=== PATIENT | female | born 1975 | race Caucasian/White ===

== ENCOUNTER → 2023-07-24 07:15 | Outpatient (REF) | payer OTHER, SELFPAY | LOC: DHSLP 07:15 | PROVIDERS: ATTENDING PHYSICIAN Physician Assistant | DX: G47.33 Obstructive sleep apnea (adult) (pediatric) (principal) | CPT/HCPCS: 95800 ==

== ENCOUNTER → 2023-08-13 13:50 | Outpatient (REF) | payer OTHER, SELFPAY | LOC: RCS 13:50 | PROVIDERS: ATTENDING PHYSICIAN Family Medicine | DX: R00.2 Palpitations (principal); R07.89 Other chest pain; I49.3 Ventricular premature depolarization | CPT/HCPCS: 93017 ==

== ENCOUNTER → 2023-08-19 09:47 | Outpatient (REF) | payer OTHER, SELFPAY | LOC: RCS 09:47 | PROVIDERS: ATTENDING PHYSICIAN Family Medicine | DX: R00.2 Palpitations (principal) | CPT/HCPCS: 93225; 93226 ==

== ENCOUNTER → 2023-10-15 13:56 | Outpatient (REF) | payer OTHER, SELFPAY | LOC: RAD 13:56 | PROVIDERS: ATTENDING PHYSICIAN Family Medicine | DX: J18.9 Pneumonia, unspecified organism (principal) | CPT/HCPCS: 71046 ==

== ENCOUNTER 2023-10-16 13:39 | Inpatient (IN) | payer OTHER, SELFPAY ==
[2023-10-16 09:35] VITALS: BMI 39.0
[2023-10-16 09:36] VITALS: BP 170/82
[2023-10-16 10:10] LABS: % Basophils 0.5 % (0-2); % Eosinophils 0.5 % (0-6); % Immature Granulocytes 0.5 % (0-0.5); % Lymphocytes 11.8 % (20.5-51.1); % Monocytes 8.4 % (1.7-9.3); % Neutrophils 78.3 % (42.2-75.2); Absolute Monocytes 0.7 10^3/uL (0.1-0.6); Absolute Neutrophils 6.8 10^3/uL (1.4-6.5); Hemoglobin 13.4 g/dL (12.0-16.0); Mean Corp Hgb Conc. 34.4 g/dL (33.0-37.0); Mean Corpuscular Hgb 29.1 pg (27.0-31.0); Mean Corpuscular Volume 84.6 fL (81.0-99.0); Mean Platelet Volume 9.8 fL (7.4-10.4); Nucleated Red Blood Cells % 0 %; Platelet Count 273 10^3/uL (130-400); Red Blood Cell Count 4.61 10^6/uL (4.20-5.40); Red Cell Dist. Width 13.4 % (11.5-14.5); White Blood Cell Count 8.6 10^3/uL (4.8-10.8)
[2023-10-16 10:18] LABS: INR 1.05; PT 13.7 Sec (11.4-14.6)
[2023-10-16 10:26] LABS: ALT (SGPT) 40 U/L (0-35); AST (SGOT) 65 U/L (14-36); Albumin 4.2 g/dl (3.5-5.0); Alkaline Phosphatase 73 U/L (38-126); Blood Urea Nitrogen 12 mg/dl (7-17); Calcium 9.2 mg/dl (8.4-10.2); Carbon Dioxide 26 mmol/L (22-30); Chloride 104 mmol/L (98-107); Estimated Creatinine Clearance > 125 ml/min; Glucose 112 mg/dl (70-99); Potassium 3.9 mmol/L (3.5-5.1); Sodium 139 mmol/L (135-145); Total Bilirubin 0.3 mg/dl (0.2-1.3); Total Protein 7.4 g/dl (6.3-8.2); eGFR > 60.00
[2023-10-16 10:35] LABS: Troponin I < 0.012 ng/ml
[2023-10-16] MEDS: DUONEB 3 ML INH (10:44)
[2023-10-16 11:00] LABS: HCG, Serum Qualitative Screen Negative
--- NOTE | 2023-10-16 11:28 | ED.GENMED ---
History of Present Illness
General
Chief Complaint: Musculo-Skeletal Complaint
Source: patient
Exam Limitations: none
Time Seen by Provider: 10/16/23 09:53
Nursing documentation reviewed up to this point in time: agreed with
Travel History
Have you had any contact with someone who has COVID-19?: No
Do you have any symptoms of coronavirus? Fever > 100 degrees, chills, cough, shortness of breath, sore throat, loss of taste or smell, muscle aches, or headache?: No
History of Present Illness
History of Present Illness:
The patient is a 47-year-old female with past medical history of asthma who reports cough and wheezing for several days. Patient reports that about 3 days ago, she developed sharp pain along her left rib cage area that has intensified and become
severe with coughing. Patient reports that her doctor initially put her on azithromycin but yesterday switched her to Augmentin. In addition, she was prescribed 40 mg of prednisone for 5 days. She started the prednisone yesterday. Patient had an
outpatient chest x-ray that was read as normal yesterday.
Past History
Past History
ED Past Medical History: Asthma
ED Past Surgical History: Other (Abdominoplasty, hernia repair)
Social History
Tobacco: Non-smoker
Alcohol: Other
Drug: None
Personal:
Living: with family
Employment: Other
Family History
Family History: Other
Review of Systems
Review of Systems
Allergies reviewed?: Yes
All Other Systems: ROS reviewed and negative except as documented in HPI and ROS
Constitutional: Reports no symptoms
EENT: Reports no symptoms
Respiratory: Reports cough and trouble breathing
Cardiac: Reports other (Left rib cage pain)
ABD/GI: Reports no symptoms
: Reports no symptoms
Musculoskeletal: Reports no symptoms
Skin: Reports no symptoms
Neurological: Reports no symptoms
Endocrine: Reports no symptoms
Hematologic/Lymphatic: Reports no symptoms
Psychiatric: Reports no symptoms
Phy Exam
Physical Exam
Physical Exam:
Physical Exam
General: Patient mildly tachypneic with speaking but appears nontoxic
Neck: supple. no meningeal signs. normal psoterior pharynx
Heart: s1/s2 regular rate and rhythm, no murmur. equal radial pulses.
Lungs: Diffuse wheezing throughout. Reproducible left chest wall pain when taking a deep breath
Abdomen: normal bowel sounds. not tender. no CVAT
Neuro: alert and oriented. no focal neurological deficits
Skin: no rash
Psychiatric: well kept. interactive and cooperative
Extremities: no edema. no calf tenderness. negative homans. good distal pulses
Course
Orders/Labs/Results
Orders:
Orders
10/16/23 09:43
EKG [Electrocardiogram (*1)] Urgent
Reason for Study: Other
Other Reason for Exam: rib pain
10/16/23 09:46
EKG- Treatment ONCE
10/16/23 09:55
Complete Blood Count/With Diff Urgent
Comprehensive Metabolic Panel Urgent
HCG, Serum Qualitative Screen Urgent
Comment: ADD ON
Prothrombin Time Urgent
Troponin I Urgent
10/16/23 10:28
Ipratropium/Albuterol Sulfate [Duoneb] 3 ml INH R NOW ONE
10/16/23 10:33
CT Chest Pe Study Urgent
Comment:
Reason For Exam: L chest pain
10/16/23 10:41
Add On- LAB Urgent
Tests Added?: serum HCG qualitative
10/16/23 11:30
Ketorolac [Toradol] 30 mg IV NOW STA
10/16/23 13:10
COVID-19 Antigen Stat
Source: Nasal Swab
Blood Culture Stat
MALICK Source: Blood/Venous
Specimen Description:
Influenza A+B Rapid Molecular Stat
MALICK Source: Nasal Swab
Specimen Description:
Abnormal Lab Results
10/16/23
09:55
Absolute Neuts (auto) 6.8 H 10^3/uL
(1.4-6.5)
Absolute Lymphs (auto) 1.0 L 10^3/uL
(1.2-3.4)
Absolute Monos (auto) 0.7 H 10^3/uL
(0.1-0.6)
Neutrophils % 78.3 H %
(42.2-75.2)
Lymphocytes % 11.8 L %
(20.5-51.1)
Glucose 112 H mg/dl
(70-99)
AST 65 H U/L
(14-36)
ALT 40 H U/L
(0-35)
10/16/23 09:55
10/16/23 09:55
Vital Signs
Initial and Last Documented VS:
Initial Vital Signs
Temp Pulse Resp BP Pulse Ox
99.4 F 82 20 170/82 97
10/16/23 09:36 10/16/23 09:36 10/16/23 09:36 10/16/23 09:36 10/16/23 09:36
Last Documented Vital Signs
Temp Pulse Resp BP Pulse Ox
99.4 F 75 20 170/82 92
10/16/23 09:36 10/16/23 12:45 10/16/23 12:45 10/16/23 09:36 10/16/23 12:45
*Radiology
Radiology exam reviewed: preliminary read by ED provider (Chest x-ray reviewed from yesterday which I am concerned shows a left lower lobe infiltrate) and radiology read reviewed
*Pulse Oximetry
Patient hypoxic: yes
Comment: 88% on room air at rest
*EKG
Interpreted by ED Provider?: Yes
Interpretation: normal
Comparison EKG: no comparison EKG present
Rate: normal
Rhythm: sinus
[place]: normal axis
QRS Pattern: normal QRS
Ischemia: no ischemia
*Advisory Software Engineer Interpretation
Interpretation: normal
Rhythm: sinus
*Critical Care Note
Total Time (30-74mins, 75-104mins- exclusive of procedures): 36 min
comment:
36 minutes of critical care given to the patient including reassessing her respiratory effort, reviewing her chest x-ray from yesterday, her CAT scan from today, reviewing her lab work, EKG and reassessing her lung sounds.
Data Reviewed
Review of Other/Old Records Reveals: Radiology Studies (Chest x-ray reviewed from yesterday. Possible left lower lobe infiltrate seen by me)
Source: patient
Patient Management
Discussion with other providers: Hospitalist
Escalation/DeEscalation of care consider admission/obs:
Given patient's acute respiratory distress involving wheezing and mild hypoxia, decision made to admit the patient to the hospital. Patient already taking oral Augmentin so I am not emergently starting her on IV antibiotics
ED Attending Note
-
Portions of this chart may have been created with voice recognition software.� Occasional wrong word or��sound alike� substitutions may have occurred due to the inherent limitations of voice recognition software.
Discharge Plan
Departure
Patient Disposition: Admit
Date of Disposition: 10/16/23
Time of Disposition: 12:39
Admit to: Med/Surg
Presentation/result/management discussed w/ accepting MD/DO: Hospitalist
Patient with high blood pressure during this ER visit?: Yes
Condition: Good
Covid-19: Not Applicable
Discharge Problem:
Bilateral pneumonia, Acute hypoxemic respiratory failure, Acute asthma exacerbation
Prescriptions:
No Action
albuterol sulfate 1 PUFF HFA aerosol inhaler
1 puff inhalation R Q6HPRN PRN (Reason: sob)
buspirone [BuSpar] 5 mg Tablet
2.5 mg PO BID
prednisone 20 mg Tablet
40 mg PO DAILY
Patient Comments:
patient pickle sorter on 10/15/23 for 5 days
omeprazole 40 mg Capsule,Delayed Release(Dr/Ec)
40 mg PO DAILY
tramadol 50 mg Tablet
50 mg PO BIDPRN PRN (Reason: MODERATE PAINS)
gabapentin 800 mg Tablet
800 mg PO BID
ibuprofen [Advil] 200 mg Tablet
400 mg PO Q6HPRN PRN (Reason: mild pain)
hydroxyzine HCl 25 mg Tablet
25 mg PO BIDPRN PRN (Reason: anxiety)
amoxicillin-pot clavulanate [Augmentin] 875-125 mg Tablet
1 tab PO BID
Trelegy Ellipta 100-62.5-25 mcg Blister With Device
1 inh INHALATION R DAILY
Referrals:
Joselito Cali MD [Family Provider] -
Interventions
Interventions:
*Risk Screen - Suicide Last Done: 10/16/23 09:36
*General Assessment Last Done: 10/16/23 09:36
*Neglect/Abuse Screening Last Done: 10/16/23 09:36
ED- Fall Risk Assessment Last Done: 10/16/23 09:56
*ED COVID-19 Vaccine History Last Done: 10/16/23 09:56
ED-Musculoskeletal Assessment Last Done: 10/16/23 09:56
Discharge Date and Time
Print Language: CAMEROONIAN
[2023-10-16] MEDS: TORADOL 30 MG IV (11:34)
--- NOTE | 2023-10-16 12:56 | HPS.HSE ---
Family Physician
<ALPA Minaya - Last Filed: 10/16/23 13:48>
-
Family Physician: Joselito Cali
Chief Complaint
<ALPA Minaya - Last Filed: 10/16/23 13:48>
-
Cough, wheezing, fever x 5 days
History of Present Illness
47-year-old female states she has had shortness of breath with productive yellow to green cough x 5 days. She did see her PCP 5 days ago(10/11) and was placed on Zpack. She then was transitioned yesterday 10/15/2023 to augmentin, prednisone. At that
time she was advised to use her albuterol inhaler 4 times daily. She reports she has had on and off fevers with Tmax middle the night 102 F. For which she took ibuprofen. She does state her 15-year-old daughter does have the same current symptoms
they were around younger children approximately 1 week ago that had runny noses and cough. She denies headache, sore throat, chills, chest pain, shortness of breath, abdominal pain, nausea, vomiting, diarrhea, urinary symptoms. She is currently in
a cam boot to her left foot secondary to ligament and bunionectomy and is due to see [facility] in 1 week
She has PMH migraine headaches, sciatica, asthma-mild intermittent, back pain/neuropathy, uterine polyps
Medical History
<ALPA Minaya - Last Filed: 10/16/23 13:48>
Past Medical History
Past Medical History: Reports Other
Additional Past Medical History:
asthma- mild
migraine headaches
sciatica
back pain/neuropathy
uterine polyps
anxiety
obesity
Past Surgical History: Reports Other
Additional Past Surgical History:
Hernia repair x 2 with abdominoplasty
Left total hip 2019
Left foot surgery ligament and bunionectomy 08/23/2023 at [facility]
Social History
Tobacco: Non-smoker
Alcohol: Occasional
Drug: None
Personal:
Living: With Family ( and 15-year-old daughter)
Employment: Employed
Family History
Family History: Other (Father CVA age 84, mother living history CVA, A-fib, DM 2)
Allergies / Home Medications
Allergies reflects when Allergies were last updated in [email or web address].
Home Medications with original date entered in [email or web address]
Allergy/Medication List:
Allergies
Allergy/AdvReac Type Severity Reaction Status Date / Time
No Known Allergies Allergy Verified 10/16/23 09:40
Home Medications
albuterol sulfate 90 mcg/actuation aerosol inhaler 1 puff inhalation R Q6HPRN PRN sob 10/06/17
amoxicillin 875 mg-potassium clavulanate 125 mg tablet 1 tab PO BID 10/16/23
buspirone 5 mg tablet 2.5 mg PO BID 10/16/23
fluticasone fur. 100 mcg-umeclid 62.5 mcg-vilant 25 mcg inhalat.powder (Trelegy Ellipta) 1 inh inhalation R DAILY 10/16/23
gabapentin 800 mg tablet 800 mg PO BID 10/16/23
hydroxyzine HCl 25 mg tablet 25 mg PO BIDPRN PRN anxiety 10/16/23
ibuprofen 200 mg tablet (Advil) 400 mg PO Q6HPRN PRN mild pain 10/16/23
omeprazole 40 mg capsule,delayed release 40 mg PO DAILY 10/16/23
prednisone 20 mg tablet 40 mg PO DAILY 10/16/23
tramadol 50 mg tablet 50 mg PO BIDPRN PRN MODERATE PAINS 10/16/23
Review of Systems
sydney;ALPA Minaya - Last Filed: 10/16/23 13:48>
-
History Source: Patient and Family ( at bedside)
Constitutional: Reports Fever and Chills
EENT: Denies Sore Throat or Runny Nose
Respiratory: Reports Cough (Productive) and Other (Wheezing); Denies Trouble Breathing
Cardiac: Denies Chest Pain, Diaphoresis, Palpitations or Syncope
Abdomen/GI: Denies Abdominal Pain, Nausea, Vomiting, Diarrhea, Constipated, Bloody Stools or Black Stools
: Denies Dysuria, Frequency, Flank Pain, Incontinence, Difficulty Voiding or Urgency
Musculoskeletal: Denies Joint Pain or Edema
Skin: Denies Itching or Rash
Neurological: Denies Dizzy, Headache or Weakness
Endocrine: Reports No Symptoms
Hematologic/Lymphatic: Reports No Symptoms
Psych: Reports Calm
Physical Exam
Dajalt;ALPA Minaya - Last Filed: 10/16/23 13:48>
Vital Signs
Vital Signs
Temp Pulse Resp BP Pulse Ox
99.4 F 75 20 170/82 92
10/16/23 09:36 10/16/23 12:45 10/16/23 12:45 10/16/23 09:36 10/16/23 12:45
Physical Exam
General: No Apparent Distress and Comfortable; No Pain, Fever or Chills
HEENT: NormoCephalic, Moist mucous membranes, PERRLA, [place] Conjunctivae and No Ptosis
Respiratory: Wheezes (Expiratory bilaterally with cough); No Rales or Rhonchi
Cardiac: S1/S2 and Regular Rhythm; No Murmur, Rub, Gallop or Peripheral Edema
GI: Soft, Non Tender, Non Distended and Normal Bowel Sounds
Genito-urinary: Deferred by me
Musculoskeletal: No Clubbing, No Cyanosis, Edema, Left Lower Extremity (Patient with cam boot in place secondary to ligament and bunion repair 08/23/2023) and No Edema; No Edema, Left Upper Extremity, Edema, Right Upper Extremity or Edema, Right
Lower Extremity
Skin: Warm and Dry; No Rash
Neuro: AO x 3, No Motor Deficits, Nonfocal/grossly intact, Cranial Nerves Intact and No Sensory Deficits; No Slurred Speech or Tremors
Psych: Calm
Laboratory Results
<ALPA Minaya - Last Filed: 10/16/23 13:48>
-
10/16/23 09:55
10/16/23 09:55
Laboratory Results
PT 13.7 Sec (11.4-14.6) 10/16/23 09:55
INR 1.05 10/16/23 09:55
Total Bilirubin 0.3 mg/dl (0.2-1.3) 10/16/23 09:55
AST 65 U/L (14-36) H 10/16/23 09:55
ALT 40 U/L (0-35) H 10/16/23 09:55
Alkaline Phosphatase 73 U/L (38-126) 10/16/23 09:55
Troponin I < 0.012 ng/ml 10/16/23 09:55
Data Reviewed
<ALPA Minaya - Last Filed: 10/16/23 13:48>
-
CT Scan: Report Reviewed by me
Lab Data: Labs Reviewed by me
Impression/Plan
<ALPA Minaya - Last Filed: 10/16/23 13:48>
-
Impression/plan:
Admit to MedSurg
#Acute hypoxic resp insuff 2/2 bilateral PNA
90%-93% RA %
completed zpack course
WBC 8.6, 99.4, HR 75, 170/82
-Check COVID, flu, blood cultures x 2
-IV Rocephin , doxycycline
-cont trelegy elipta, add xopenex
-legionella
-Sputum culture
-Incentive spirometry
-Consult pulmonary
-Tylenol as needed
-Follow CBC, CMP
CT PE study: No pulmonary embolism identified.
Findings most consistent with bilateral pneumonia most severe in the right lower lobe
Moderate cardiomegaly
Hepatic fatty infiltration with splenomegaly
EKG: NSR 72 bpm, QTc 413 MS no change from August 2016
#Asthma Hx-mild intermittent Hx no acute exacerbation
-cont Trelegy Ellipta or equivalent
#Transaminitis likely reactive/Hx hepatic fatty infiltration
AST 65, ALT 40, alk phos 73
Follow CMP
#Hx splenomegaly
#Status post ligament repair/bunionectomy left foot 08/23/2023
-Currently in cam boot is scheduled to see [facility] 1 week for removal
#Chronic back pain/neuropathy
-Continue gabapentin 800 mg bid, tramadol
#History of migraines- no current migraine
#Obesity due to excess calorie consumption�BMI 39 kg
Weight loss recommended, low-fat diet
#Anxiety
cont buspar
DVT prophylaxis
Subcu Lovenox
Full code
<Hamida Whitlock MD - Last Filed: 10/16/23 14:39>
-
Impression/plan:
Admit to MedSurg
#Acute hypoxic resp insuff 2/2 bilateral PNA
90%-93% RA %
completed zpack course
WBC 8.6, 99.4, HR 75, 170/82
-Check COVID, flu, blood cultures x 2
-IV Rocephin , doxycycline
-cont trelegy elipta, add xopenex
-legionella
-Sputum culture
-Incentive spirometry
-Consult pulmonary
-Tylenol as needed
-Follow CBC, CMP
CT PE study: No pulmonary embolism identified.
Findings most consistent with bilateral pneumonia most severe in the right lower lobe
Moderate cardiomegaly
Hepatic fatty infiltration with splenomegaly
EKG: NSR 72 bpm, QTc 413 MS no change from August 2016
#Asthma Hx-mild intermittent Hx no acute exacerbation
-cont Trelegy Ellipta or equivalent
#Transaminitis likely reactive/Hx hepatic fatty infiltration
AST 65, ALT 40, alk phos 73
Follow CMP
#Hx splenomegaly
#Status post ligament repair/bunionectomy left foot 08/23/2023
-Currently in cam boot is scheduled to see [facility] 1 week for removal
#Chronic back pain/neuropathy
-Continue gabapentin 800 mg bid, tramadol
#History of migraines- no current migraine
#Obesity due to excess calorie consumption�BMI 39 kg
Weight loss recommended, low-fat diet
#Anxiety
cont buspar
DVT prophylaxis
Subcu Lovenox
Full code
I saw and examined the patient.
The VICE PRESIDENT TAX or PA's note was reviewed and I agree with the note.
Comment:
Physical Exam
General: No Apparent Distress and Comfortable; No Pain, Fever or Chills
HEENT: Normocephalic, Moist mucous membranes, PERRLA, [place] Conjunctivae and No Ptosis
Respiratory: mild rhonchi, I did no hear significant Wheezes.
Cardiac: S1/S2 and Regular Rhythm;
GI: Soft, Non Tender, Non Distended and Normal Bowel Sounds
Genito-urinary:No CV tenderness
Musculoskeletal: No Clubbing, No Cyanosis, Edema, Left Lower Extremity (Patient with cam boot in place secondary to ligament and bunion repair 08/23/2023) and No Edema; No Edema, Left Upper Extremity, Edema, Right Upper Extremity or Edema, Right
Lower Extremity
Skin: Warm and Dry; No Rash
Neuro: AO x 3, No Motor Deficits, Nonfocal/grossly intact, Cranial Nerves Intact and No Sensory Deficits; No Slurred Speech or Tremors
Psych: Calm
#Acute hypoxic resp insuff 2/2 bilateral CAP
90%-93% RA %
completed zpack course
WBC 8.6, 99.4, HR 75, 170/82
- Negative COVID, flu
blood cultures x 2
-IV Rocephin , doxycycline
-cont Trelegy elipta, add Xopenex
-legionella
-Sputum culture if possible
-Incentive spirometry
-Consult pulmonary, appreciate help
-Tylenol as needed
-Follow CBC, CMP
CT PE study: No pulmonary embolism identified.
Findings most consistent with bilateral pneumonia most severe in the right lower lobe
Moderate cardiomegaly
Hepatic fatty infiltration with splenomegaly
EKG: NSR 72 bpm, QTc 413 MS no change from August 2016
#Asthma Hx-mild intermittent Hx no acute exacerbation
-cont Trelegy Ellipta or equivalent
#Transaminitis likely reactive/Hx hepatic fatty infiltration
AST 65, ALT 40, alk phos 73
Follow CMP
#Hx splenomegaly
#Status post ligament repair/bunionectomy left foot 08/23/2023
-Currently in cam boot is scheduled to see [facility] 1 week for removal
#Chronic back pain/neuropathy
-Continue gabapentin 800 mg bid, tramadol
#History of migraines- no current migraine
#Obesity due to excess calorie consumption�BMI 39 kg
Weight loss recommended, low-fat diet
#Anxiety
cont buspar
DVT prophylaxis
Subcu Lovenox
Full code
Total time spent to see the patient, examine the patient on the floor, review data and lab results, discuss treatment plan with patient, ER doctor and nursing staff around 75 minutes
[2023-10-16 14:06] LABS: COVID-19 Antigen Negative (Negative)
[2023-10-16] MEDS: XOPENEX 1.25 MG INHALANT SOLUTION INH ×2 (14:15→18:12)
[2023-10-16] MEDS: ROCEPHIN 1000 MG IV (14:21)
[2023-10-16] MEDS: VIBRAMYCIN 100 MG PO ×2 (14:23→20:23)
[2023-10-16 14:57] VITALS: BMI 37.9
[2023-10-16 15:06] VITALS: BP 152/88
--- NOTE | 2023-10-16 15:13 | PTCARENOTE ---
Received pt from ED in wheelchair. Able to walk into bed, appearing comfortable, slight ROJAS, occasional harsh productive cough w/ deep breaths. 95% on RA.
--- NOTE | 2023-10-16 15:14 | CON.PUL ---
Consultation
Consultation Request
Date/Time Consultation Requested: 10/16/23
Date/Time Consultation Performed: 10/16/23
Performing Provider: Kassandra
Reason for Consultation: SOB/asthma
Medical History
-
History of Present Illness:
Patient is a 47-year-old female with previous history of asthma, allergic rhinitis presenting to ER for acute onset shortness of breath, wheezing, cough with productive mucus for the past several days. She was treated by her outpatient primary
with course of azithromycin which did not help. She was then placed on Augmentin and prednisone. She was utilizing her albuterol up to 4 times daily without relief. She is currently taking Trelegy for her asthma. She feels she may have been
triggered by upper respiratory illness, fevers at home, sick contact with her daughter. CT chest showing possible RLL PNA.
She was diagnosed with asthma about 10 years ago by an outpatient jersey knitter who performed spirometry demonstrating obstruction. She does have skin testing that is positive for feathers. She has not had follow-up for several years in terms of her
asthma, last known spirometry was greater than 10 years ago. She does have seasonal allergies, does not take dewa-hjw-jnadpvg antihistamines regularly.
She generally has exacerbations 1 or 2 times a year due to acute bronchitis, requiring prednisone.
Past Medical History
Past Medical History: Other (see below)
Social History
Tobacco: Non-smoker
Alcohol: None
Drug: None
Family History
Family History: Reviewed & Not Pertinent
Allergies / Home Medications
Allergies
Allergy/AdvReac Type Severity Reaction Status Date / Time
No Known Allergies Allergy Verified 10/16/23 09:40
Home Medications
�Medication �Instructions �Recorded �Confirmed �Last Taken �Type
albuterol sulfate 90 mcg/actuation 1 puff inhalation R Q6HPRN PRN sob 10/06/17 10/16/23 04/13/21 18:00 History
aerosol inhaler
amoxicillin 875 mg-potassium 1 tab PO BID 10/16/23 10/16/23 10/16/23 History
clavulanate 125 mg tablet
buspirone 5 mg tablet 2.5 mg PO BID 10/16/23 10/16/23 10/16/23 History
fluticasone fur. 100 mcg-umeclid 1 inh inhalation R DAILY 10/16/23 10/16/23 10/16/23 History
62.5 mcg-vilant 25 mcg
inhalat.powder (Trelegy Ellipta)
gabapentin 800 mg tablet 800 mg PO BID 10/16/23 10/16/23 10/16/23 History
hydroxyzine HCl 25 mg tablet 25 mg PO BIDPRN PRN anxiety 10/16/23 10/16/23 Unknown History
ibuprofen 200 mg tablet (Advil) 400 mg PO Q6HPRN PRN mild pain 10/16/23 10/16/23 10/16/23 History
omeprazole 40 mg capsule,delayed 40 mg PO DAILY 10/16/23 10/16/23 10/16/23 History
release
prednisone 20 mg tablet 40 mg PO DAILY 10/16/23 10/16/23 10/16/23 History
tramadol 50 mg tablet 50 mg PO BIDPRN PRN MODERATE PAINS 10/16/23 10/16/23 10/16/23 History
Review of Systems
-
History Source: Patient
All other systems: Negative unless noted
Vitals / Labs / Diagnostic Testing
Vital Signs
Temp Pulse Resp BP Pulse Ox
97.9 F 75 20 152/88 95
10/16/23 15:06 10/16/23 15:06 10/16/23 15:06 10/16/23 15:06 10/16/23 15:11
Lab Data
10/16/23 09:55
10/16/23 09:55
Laboratory Results
10/16/23
09:55
PT 13.7
INR 1.05
Microbiology
10/16/23 13:34 Nasal Swab Influenza Types A & B (ANAHI) - Final
Negative for Influenza A & B, NAAT
Negative results must be combined with clinical observations
and patient history.
Nucleic Acid Amplification test (NAAT)performed on the
[employer] platform.
Diagnostic Testing:
Physical Exam
-
HEENT: Normocephalic, Anicteric and Moist Mucous Membranes
Cardiovascular: S1/S2 and Regular Rhythm
Respiratory: Clear (overall diminished) and Non-Labored Respirations
GI: Soft, Non Distended and Non Tender
Neurology: Awake, Alert, Oriented, AO x 3, No Motor Deficits and Other (L foot in boot)
Skin: Warm, Dry and Good Color
General: Comfortable and Other (NAD)
Assessment
-
Patient is a 47-year-old female with previous history of asthma, allergic rhinitis presenting to ER for acute onset shortness of breath, wheezing, cough with productive mucus for the past several days. She was treated by her outpatient primary
with course of azithromycin which did not help. She was then placed on Augmentin and prednisone. She was utilizing her albuterol up to 4 times daily without relief. She is currently taking Trelegy for her asthma. She feels she may have been
triggered by upper respiratory illness, fevers at home, sick contact with her daughter. We are consulted for eval.
Acute exacerbation of asthma
Shortness of breath, wheezing
Productive cough
URI/RLL PNA
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
DJD (degenerative joint disease), cervical
Migraine without aura, not intractable, without status migrainosus
Anxiety
Moderate persistent asthma without complication
Bipolar depression
History of torn ligament in ankle
Abdominoplasty and hernia repair (2014)
Left hip THR
Left s/p closed reduction of dislocated total hip prothesis 12/14/2021
Obesity BMI 37.9
Mild YESENIA, HST AHI 8.4
Plan
No oxygen was needed on admission, currently saturating >90% on RA
Prior history of lung disease is noted including: Asthma
She was diagnosed with asthma about 10 years ago by an outpatient jersey knitter who performed spirometry demonstrating obstruction.
She does have skin testing that is positive for feathers.
She does have seasonal allergies, does not take pojd-tuw-awevvyn antihistamines regularly.
She generally has exacerbations 1 or 2 times a year due to acute bronchitis, requiring prednisone.
Suspect patient has underlying AE asthma, will start IV steroids
We discussed asthma action plan
No PFT in past for review
CXR obtained indicating NAD, f/u CT chest showing possible RLL PNA
Appearance is not consolidated, but with fever would not be unreasonable to place on IV abx
She has failed outpatient PO abx
Other imaging reviewed
No prior ECHO for review
She did undergo recent stress test that was negative
Will need outpatient pulmonary evaluation in our office for PFTs and 6MWT
Reviewed with patient
HST recently showing mild YESENIA, this can be managed at our office as well
Weight loss measures recommended
Obesity may be contributing to respiratory symptoms
We will follow
Diagnostic Data
CT chest 10/16/23- IMPRESSION:
1. Limited by respiratory motion artifact. No pulmonary emboli are identified.
2. Findings as above most consistent with bilateral pneumonia, most severe in the right lower lobe.
3. Moderate cardiomegaly.
4. Hepatic fatty infiltration. Splenomegaly.
HST 07/24/23: AHI 8.4, O2 rashmi 68%
Stress test 08/13/23: neg, PACs/PVCs noted
[2023-10-16] MEDS: DECADRON 4 MG IV (16:10)
[2023-10-16] MEDS: LOVENOX 40 MG SC (16:11)
[2023-10-16] MEDS: ULTRAM 50 MG PO (18:02)
[2023-10-16] MEDS: SYMBICORT 80/4.5 MCG INHALER 2 PUFF INH (18:12)
--- NOTE | 2023-10-16 18:40 | W.PN.UPDATE ---
Update Note
Progress Note Update
Patient complaining of left lateral rib pain with coughing
-Tramadol not helping
-Will give Percocet 1 tab every 4 as needed left rib pain
[2023-10-16] MEDS: PERCOCET 5/325 1 TABLET PO ×2 (19:03→23:30)
[2023-10-16] MEDS: NEURONTIN 800 MG PO (20:23)
[2023-10-16] MEDS: BUSPAR 2.5 MG PO (20:23)
[2023-10-16] MEDS: MUCINEX 600 MG PO (20:23)
[2023-10-16 23:15] VITALS: BP 158/83
[2023-10-17] MEDS: DECADRON 4 MG IV ×2 (04:18→15:53)
[2023-10-17] MEDS: PERCOCET 5/325 1 TABLET PO ×5 (04:26→21:52)
[2023-10-17 07:40] VITALS: BP 160/95
[2023-10-17] MEDS: XOPENEX 1.25 MG INHALANT SOLUTION INH ×3 (08:04→21:01)
[2023-10-17] MEDS: SPIRIVA RESPIMAT 2.5 MCG 2 PUFF INH (08:05)
[2023-10-17] MEDS: SYMBICORT 80/4.5 MCG INHALER 2 PUFF INH ×2 (08:05→21:01)
[2023-10-17 08:06] LABS: % Basophils 0.5 % (0-2); % Lymphocytes 18.7 % (20.5-51.1); % Monocytes 7.4 % (1.7-9.3); % Neutrophils 72.4 % (42.2-75.2); Absolute Immature Granulocytes 0.1 10^3/uL (0-0.05); Absolute Lymphocytes 1.2 10^3/uL (1.2-3.4); Absolute Monocytes 0.5 10^3/uL (0.1-0.6); Absolute Neutrophils 4.6 10^3/uL (1.4-6.5); Hematocrit 38.2 % (37.0-47.0); Hemoglobin 12.8 g/dL (12.0-16.0); Mean Corp Hgb Conc. 33.5 g/dL (33.0-37.0); Mean Corpuscular Volume 86.4 fL (81.0-99.0); Mean Platelet Volume 10.1 fL (7.4-10.4); Nucleated Red Blood Cells % 0 %; Platelet Count 264 10^3/uL (130-400); Red Blood Cell Count 4.42 10^6/uL (4.20-5.40); Red Cell Dist. Width 13.2 % (11.5-14.5); White Blood Cell Count 6.3 10^3/uL (4.8-10.8)
[2023-10-17 08:26] LABS: Blood Urea Nitrogen 16 mg/dl (7-17); Calcium 9.2 mg/dl (8.4-10.2); Carbon Dioxide 26 mmol/L (22-30); Chloride 104 mmol/L (98-107); Estimated Creatinine Clearance > 125 ml/min; Glucose 109 mg/dl (70-99); Potassium 4.5 mmol/L (3.5-5.1); Sodium 137 mmol/L (135-145); eGFR > 60.00
[2023-10-17] MEDS: NEURONTIN 800 MG PO ×2 (08:27→20:07)
[2023-10-17] MEDS: PROTONIX 40 MG PO (08:27)
[2023-10-17] MEDS: MUCINEX 600 MG PO ×2 (08:27→20:07)
[2023-10-17] MEDS: VIBRAMYCIN 100 MG PO ×2 (08:27→20:07)
[2023-10-17] MEDS: BUSPAR 2.5 MG PO ×2 (08:27→20:08)
[2023-10-17] MEDS: ZOFRAN 4 MG IV (09:05)
--- NOTE | 2023-10-17 09:33 | W.PN.PUL3 ---
Today's Communication / Plan
-
Transition to PO steroids tomorrow
Continue home inhalers with albuterol PRN
Transition abx to PO
Outpatient pulmonary FU discussed again today
Discharge planning hopefully in next 24 hours if improving
Assessment
-
Patient is a 47-year-old female with previous history of asthma, allergic rhinitis presenting to ER for acute onset shortness of breath, wheezing, cough with productive mucus for the past several days. She was treated by her outpatient primary
with course of azithromycin which did not help. She was then placed on Augmentin and prednisone. She was utilizing her albuterol up to 4 times daily without relief. She is currently taking Trelegy for her asthma. She feels she may have been
triggered by upper respiratory illness, fevers at home, sick contact with her daughter. We are consulted for eval.
Acute exacerbation of asthma
Shortness of breath, wheezing
Productive cough
URI/RLL PNA
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
DJD (degenerative joint disease), cervical
Migraine without aura, not intractable, without status migrainosus
Anxiety
Moderate persistent asthma without complication
Bipolar depression
History of torn ligament in ankle
Abdominoplasty and hernia repair (2014)
Left hip THR
Left s/p closed reduction of dislocated total hip prothesis 12/14/2021
Obesity BMI 37.9
Mild YESENIA, HST AHI 8.4
Plan
No oxygen was needed on admission, currently saturating >90% on RA
Prior history of lung disease is noted including: Asthma
She was diagnosed with asthma about 10 years ago by an outpatient digital business analyst who performed spirometry demonstrating obstruction.
She does have skin testing that is positive for feathers.
She does have seasonal allergies, does not take sesk-pir-cwzkoom antihistamines regularly.
She generally has exacerbations 1 or 2 times a year due to acute bronchitis, requiring prednisone.
Suspect patient has underlying AE asthma, IV steroids
Transition to PO course tomorrow
We discussed asthma action plan
No PFT in past for review
CXR obtained indicating NAD, f/u CT chest showing possible RLL PNA
Appearance is not consolidated, but with fever would not be unreasonable to place on IV abx
She has failed outpatient PO abx
Other imaging reviewed
No prior ECHO for review
She did undergo recent stress test that was negative
Will need outpatient pulmonary evaluation in our office for PFTs and 6MWT
Reviewed with patient
HST recently showing mild YESENIA, this can be managed at our office as well
Weight loss measures recommended
Obesity may be contributing to respiratory symptoms
Discharge planning per team if better in next 24 hours
Diagnostic Data
CT chest 10/16/23- IMPRESSION:
1. Limited by respiratory motion artifact. No pulmonary emboli are identified.
2. Findings as above most consistent with bilateral pneumonia, most severe in the right lower lobe.
3. Moderate cardiomegaly.
4. Hepatic fatty infiltration. Splenomegaly.
HST 07/24/23: AHI 8.4, O2 rashmi 68%
Stress test 08/13/23: neg, PACs/PVCs noted
Subjective Data
-
Date of Service:
Date of Service: October 17, 2023
Chief Complaint: Pulmonary Follow Up
Subjective:
better today, still wheezing mildly
cough has started
she does feel less SOB
Objective Data
Data Reviewed
Vital Signs / I&O / Oxygen:
Vital Signs
Temp Pulse Resp BP Pulse Ox
97.8 F 76 18 160/95 94
10/17/23 07:40 10/17/23 08:07 10/17/23 08:07 10/17/23 07:40 10/17/23 08:58
Intake and Output
10/16/23 10/17/23 10/18/23
06:59 06:59 06:59
Intake Total 1440 / 1440
Balance 1440 / 1440
SaO2 94
Physical Exam
General: Comfortable and Other (NAD)
HEENT: Normocephalic, Anicteric and Moist Mucous Membranes
Cardiovascular: S1-S2 and Regular Rhythm
Respiratory: Wheeze (mild), Non-Labored Respirations and Other (better air movement)
GI: Soft, Non Distended and Non Tender
Neurology: Awake, Alert, Oriented, AO x 3 and No Motor Deficits
Skin: Warm, Dry and Good Color
Labs/Micro/Reports
Lab Data
10/17/23 06:59
10/17/23 06:59
Laboratory Results
10/16/23
09:55
PT 13.7
INR 1.05
Microbiology
10/16/23 17:32 Sputum Respiratory Culture - Final
10/16/23 17:32 Sputum Gram Stain - Preliminary
10/16/23 13:34 Nasal Swab Influenza Types A & B (ANAHI) - Final
Negative for Influenza A & B, NAAT
Negative results must be combined with clinical observations
and patient history.
Nucleic Acid Amplification test (NAAT)performed on the
[employer] platform.
--- NOTE | 2023-10-17 09:38 | W.PN.HOSP.TC ---
Today's Communication/Plan
-
likely dc in am
Assessment / Plan
Assessment / Plan
Physical Exam
General: No Apparent Distress and Comfortable; No Pain, Fever or Chills
HEENT: Normocephalic, Moist mucous membranes, PERRLA, [place] Conjunctivae and No Ptosis
Respiratory: mild rhonchi, I did no hear significant Wheezes.
Cardiac: S1/S2 and Regular Rhythm;
GI: Soft, Non Tender, Non Distended and Normal Bowel Sounds
Genito-urinary:No CV tenderness
Musculoskeletal: No Clubbing, No Cyanosis, Edema, Left Lower Extremity (Patient with cam boot in place secondary to ligament and bunion repair 08/23/2023) and No Edema; No Edema, Left Upper Extremity, Edema, Right Upper Extremity or Edema, Right
Lower Extremity
Skin: Warm and Dry; No Rash
Neuro: AO x 3, No Motor Deficits, Nonfocal/grossly intact, Cranial Nerves Intact and No Sensory Deficits; No Slurred Speech or Tremors
Psych: Calm
#Acute hypoxic resp insuff 2/2 bilateral CAP
She is doing better now
No need for more nasal O@
c/w Abx
Add Tessalon for cough
# Left lower rib pain, likely from coughing
No trauma history
Will do PRN pain medicine
and add heating pad
Prophylactic laxative due to use of opioid , Dulcolax
#Acute exacerbation of asthma from infection / hx of Moderate persistent asthma without complication
-cont Trelegy Ellipta or equivalent
Trial of steroid therapy
#Transaminitis likely reactive/Hx hepatic fatty infiltration
AST 65, ALT 40, alk phos 73
No abd pain
Good appetite
#Hx splenomegaly
#Status post ligament repair/bunionectomy left foot 08/23/2023
-Currently in cam boot is scheduled to see [facility] 1 week for removal
#Chronic back pain/neuropathy
-Continue gabapentin 800 mg bid, tramadol
#History of migraines- no current migraine
#Obesity due to excess calorie consumption�BMI 39 kg
Weight loss recommended, low-fat diet
#Anxiety
cont buspar
DVT prophylaxis
Subcu Lovenox
Full code
Total time spent to see the patient, examine the patient on the floor, review data and lab results, discuss treatment plan with patient and nursing staff around 55 minutes
Anticipated Discharge: Within 24 hours
Subjective/Interval History
-
Date of Service: October 17, 2023
Feels better, still cough
Left lower rib pain
Objective Data
-
Labs:
Laboratory Results
10/17/23
06:59
WBC 6.3
Hgb 12.8
Hct 38.2
Plt Count 264
Sodium 137
Potassium 4.5
Chloride 104
Carbon Dioxide 26
BUN 16
Creatinine 0.5 L
Glucose 109 H
Calcium 9.2
Vital Signs:
Vital Signs
Temp Pulse Resp BP Pulse Ox
97.8 F 76 18 160/95 94
10/17/23 07:40 10/17/23 08:07 10/17/23 08:07 10/17/23 07:40 10/17/23 08:58
I&O
10/16/23 10/17/23 10/18/23
06:59 06:59 06:59
Intake Total 1440 / 1440
Balance 1440 / 1440
[2023-10-17] MEDS: TESSALON PERLES 200 MG PO ×2 (10:58→17:48)
[2023-10-17] MEDS: NORVASC 5 MG PO (10:59)
[2023-10-17 11:10] VITALS: BP 130/79
[2023-10-17] MEDS: ROCEPHIN 1000 MG IV (13:42)
[2023-10-17] MEDS: STERILE WATER FOR INJECTION 10 ML IV (13:42)
--- NOTE | 2023-10-17 15:26 | CM ---
bingo manager reviewed patient's chart and met with patient and franca lives with her spouse and children in a multilevel home, patient is independent with adl's and ambulation, no dme, patient drives. Patient has a prescription plan and uses [facility].
PCP: Dr. Cali
Plan; Home with spouse when stable.
[2023-10-17 15:35] VITALS: BP 156/96
[2023-10-17] MEDS: LOVENOX 40 MG SC (17:28)
[2023-10-17] MEDS: DULCOLAX 10 MG PO (21:50)
[2023-10-17 22:45] VITALS: BP 146/79
[2023-10-17 23:00] VITALS: BP 146/79
[2023-10-18] MEDS: PERCOCET 5/325 1 TABLET PO ×2 (03:53→10:01)
[2023-10-18] MEDS: TESSALON PERLES 200 MG PO ×2 (03:53→10:01)
[2023-10-18 06:29] LABS: % Basophils 0.3 % (0-2); % Immature Granulocytes 1.3 % (0-0.5); % Lymphocytes 36.1 % (20.5-51.1); % Monocytes 8.2 % (1.7-9.3); % Neutrophils 54.1 % (42.2-75.2); Absolute Immature Granulocytes 0.1 10^3/uL (0-0.05); Absolute Lymphocytes 2.2 10^3/uL (1.2-3.4); Absolute Monocytes 0.5 10^3/uL (0.1-0.6); Absolute Neutrophils 3.3 10^3/uL (1.4-6.5); Hematocrit 36.8 % (37.0-47.0); Hemoglobin 12.7 g/dL (12.0-16.0); Mean Corp Hgb Conc. 34.5 g/dL (33.0-37.0); Mean Corpuscular Hgb 29.1 pg (27.0-31.0); Mean Corpuscular Volume 84.4 fL (81.0-99.0); Mean Platelet Volume 9.7 fL (7.4-10.4); Nucleated Red Blood Cells % 0 %; Platelet Count 279 10^3/uL (130-400); Red Blood Cell Count 4.36 10^6/uL (4.20-5.40); Red Cell Dist. Width 13.4 % (11.5-14.5); White Blood Cell Count 6.1 10^3/uL (4.8-10.8)
[2023-10-18 06:59] LABS: Blood Urea Nitrogen 16 mg/dl (7-17); Calcium 9.2 mg/dl (8.4-10.2); Carbon Dioxide 27 mmol/L (22-30); Chloride 103 mmol/L (98-107); Estimated Creatinine Clearance > 125 ml/min; Glucose 93 mg/dl (70-99); Potassium 4.1 mmol/L (3.5-5.1); Sodium 139 mmol/L (135-145); eGFR > 60.00
[2023-10-18 07:00] VITALS: BP 120/72
[2023-10-18] MEDS: XOPENEX 1.25 MG INHALANT SOLUTION INH ×2 (08:14→13:59)
[2023-10-18] MEDS: SYMBICORT 80/4.5 MCG INHALER 2 PUFF INH (08:14)
[2023-10-18] MEDS: SPIRIVA RESPIMAT 2.5 MCG 2 PUFF INH (08:22)
--- NOTE | 2023-10-18 09:12 | W.PN.PUL3 ---
Today's Communication / Plan
-
Transitioned to PO prednisone, taper at discharge
Encouraged continued ambulation/PT
Resume home inhalers
We discussed OP pulm FU for PFTs
Discharge planning per team, she was agreeable to go home
Assessment
-
Patient is a 47-year-old female with previous history of asthma, allergic rhinitis presenting to ER for acute onset shortness of breath, wheezing, cough with productive mucus for the past several days. She was treated by her outpatient primary
with course of azithromycin which did not help. She was then placed on Augmentin and prednisone. She was utilizing her albuterol up to 4 times daily without relief. She is currently taking Trelegy for her asthma. She feels she may have been
triggered by upper respiratory illness, fevers at home, sick contact with her daughter. We are consulted for eval.
Acute exacerbation of asthma
Shortness of breath, wheezing
Productive cough
URI/RLL PNA
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
DJD (degenerative joint disease), cervical
Migraine without aura, not intractable, without status migrainosus
Anxiety
Moderate persistent asthma without complication
Bipolar depression
History of torn ligament in ankle
Abdominoplasty and hernia repair (2014)
Left hip THR
Left s/p closed reduction of dislocated total hip prothesis 12/14/2021
Obesity BMI 37.9
Mild YESENIA, HST AHI 8.4
Plan
No oxygen was needed on admission, currently saturating >90% on RA
Prior history of lung disease is noted including: Asthma
She was diagnosed with asthma about 10 years ago by an outpatient teachers assistant who performed spirometry demonstrating obstruction.
She does have skin testing that is positive for feathers.
She does have seasonal allergies, does not take vrtf-iue-mnbtwpw antihistamines regularly.
She generally has exacerbations 1 or 2 times a year due to acute bronchitis, requiring prednisone.
Suspect patient has underlying AE asthma, IV steroids
Transitioned to PO course, taper at discharge
We discussed asthma action plan
No PFT in past for review
CXR obtained indicating NAD, f/u CT chest showing possible RLL PNA
Appearance is not consolidated, but with fever would not be unreasonable to place on IV abx
She has failed outpatient PO abx
Other imaging reviewed
No prior ECHO for review
She did undergo recent stress test that was negative
Will need outpatient pulmonary evaluation in our office for PFTs and 6MWT
Reviewed with patient
HST recently showing mild YESENIA, this can be managed at our office as well
Weight loss measures recommended
Obesity may be contributing to respiratory symptoms
Discharge planning per team
Diagnostic Data
CT chest 10/16/23- IMPRESSION:
1. Limited by respiratory motion artifact. No pulmonary emboli are identified.
2. Findings as above most consistent with bilateral pneumonia, most severe in the right lower lobe.
3. Moderate cardiomegaly.
4. Hepatic fatty infiltration. Splenomegaly.
HST 07/24/23: AHI 8.4, O2 rashmi 68%
Stress test 08/13/23: neg, PACs/PVCs noted
Subjective Data
-
Date of Service:
Date of Service: October 18, 2023
Chief Complaint: Pulmonary Follow Up
Subjective:
doing well today, stable on room air
no new complaints
coughing ongoing
Objective Data
Data Reviewed
Vital Signs / I&O / Oxygen:
Vital Signs
Temp Pulse Resp BP Pulse Ox
98.7 F 69 14 120/72 97
10/18/23 07:00 10/18/23 08:25 10/18/23 08:25 10/18/23 07:00 10/18/23 08:25
Intake and Output
10/17/23 10/18/23 10/19/23
06:59 06:59 06:59
Intake Total 1440 / 1440 960 / 960
Balance 1440 / 1440 960 / 960
SaO2 97
Physical Exam
General: Comfortable and Other (NAD)
HEENT: Normocephalic, Anicteric and Moist Mucous Membranes
Cardiovascular: S1-S2 and Regular Rhythm
Respiratory: Clear and Non-Labored Respirations
GI: Soft, Non Distended and Non Tender
Neurology: Awake, Alert, Oriented, AO x 3 and No Motor Deficits
Skin: Warm, Dry and Good Color
Labs/Micro/Reports
Lab Data
10/18/23 06:21
10/18/23 06:21
Microbiology
10/16/23 13:34 Blood/Venous Blood Culture - Preliminary
No Growth in 24 hours- Final report to follow
10/16/23 17:32 Sputum Respiratory Culture - Final
10/16/23 17:32 Sputum Gram Stain - Preliminary
10/16/23 13:34 Nasal Swab Influenza Types A & B (ANAHI) - Final
Negative for Influenza A & B, NAAT
Negative results must be combined with clinical observations
and patient history.
Nucleic Acid Amplification test (NAAT)performed on the
[employer] platform.
[2023-10-18] MEDS: NEURONTIN 800 MG PO (09:39)
[2023-10-18] MEDS: PROTONIX 40 MG PO (09:39)
[2023-10-18] MEDS: DELTASONE 50 MG PO (09:39)
[2023-10-18] MEDS: MUCINEX 600 MG PO (09:39)
[2023-10-18] MEDS: NORVASC 5 MG PO (09:39)
[2023-10-18] MEDS: STERILE WATER FOR INJECTION 10 ML IV (09:40)
[2023-10-18] MEDS: VIBRAMYCIN 100 MG PO (09:40)
[2023-10-18] MEDS: ROCEPHIN 1000 MG IV (09:40)
[2023-10-18] MEDS: BUSPAR 2.5 MG PO (09:40)
[2023-10-18] MEDS: STERILE WATER FOR INJECTION IV (09:43)
[2023-10-18] MEDS: ZOFRAN 4 MG IV (10:00)
--- NOTE | 2023-10-18 12:10 | W.DCSUMMARY ---
Discharge Summary
Discharge Data
Date of Admission: 10/16/23
Date of Discharge: 10/18/23
-
Pending Results: No
Hospital Course
47 years old female with previous history of asthma, allergic rhinitis presented to the emergency department with worsening shortness of breath, wheezing, cough and productive whitish/yellowish mucus in the last few days. Patient was given
treatment with course of Zithromax but did not help. Patient was placed on Augmentin and prednisone. She was using her albuterol treatment at home with no improvement. She was also taking Trelegy for her asthma. She did not have fevers. Scan
of the chest showed bilateral pneumonia and no pulmonary embolism. Patient was diagnosed with community-acquired pneumonia with acute exacerbation of asthma. Patient was evaluated by pulmonary doctor. She was given intravenous antibiotic, steroid
treatment and nebulizer treatment. Patient started to improve. She did not need oxygen therapy. She did not have fevers. Blood culture did not show any any growth. She had negative COVID and influenza test. Patient did not have leukocytosis.
Patient was noted to have elevated blood pressure consistently with systolic blood pressure between 170-146. Patient was started on new medicine called amlodipine, 5 mg. She tolerated medication well. Patient was advised to follow-up with her
primary care doctor to monitor blood pressure at home. Pulmonary doctor recommended outpatient follow-up. Patient complained of left lower rib pain from coughing. She was given pain medicine and heating pad. She had mild elevation in liver
enzymes and a scan showed splenomegaly with hepatic fatty infiltration. Patient was counseled to follow healthy lifestyle including weight loss and low-fat diet. Patient was following with teacher of the emotionally disturbed. Patient remained hemodynamically stable and
was discharged in a stable condition.
Physical Exam
General: No Apparent Distress and Comfortable; No Pain, Fever or Chills
HEENT: Normocephalic, Moist mucous membranes, PERRLA, [place] Conjunctivae and No Ptosis
Respiratory: Mild rhonchi with no significant wheezes
Cardiac: S1/S2 and Regular Rhythm;
GI: Soft, Non Tender, Non Distended and Normal Bowel Sounds
Genito-urinary:No CV tenderness
Musculoskeletal: No Clubbing, No Cyanosis, Edema, Left Lower Extremity (Patient with cam boot in place secondary to ligament and bunion repair 08/23/2023) and No Edema; No Edema, Left Upper Extremity, Edema, Right Upper Extremity or Edema, Right
Lower Extremity
Skin: Warm and Dry; No Rash
Neuro: AO x 3, No Motor Deficits, Nonfocal/grossly intact, No Slurred Speech or Tremors
Psych: Calm
Total discharge time spent to see the patient, examine the patient on the floor, review data and lab results, discuss discharge plan with patient pulmonary doctor and nursing staff around 65 minutes
Discharge Plan
-
Patient Disposition: Home (Routine Discharge)
Discharge Diagnosis/Procedures: Community-acquired pneumonia
Acute asthma exacerbation
Newly diagnosis primary hypertension: You are started on new medicine called amlodipine which is a calcium channel loyd, potential side effects include hypotension, mild ankle edema(unusual in sometimes more common in women). Monitor your blood
pressure at home. Optimal blood pressure less than 140/90. Avoid excess salt intake.
Fatty liver
You are seen by pulmonary doctor. You were given antibiotic. Blood culture did not show any growth. You had negative influenza and COVID test. He did not have fever or elevation in white blood cell count.
Follow-up with pulmonary doctor.
Diet: Regular and Low Fat
Referrals:
Joselito Cali MD [Family Provider] - in one to two weeks
Fiorella Cannon DO [Active] - (3-4 weeks, PFTs)
Prescriptions:
New
doxycycline hyclate 100 mg Capsule
100 mg PO Q12 Qty: 6 0RF
amlodipine 5 mg Tablet
5 mg PO DAILY Qty: 30 0RF
benzonatate 100 mg Capsule
200 mg PO TIDPRN PRN (Reason: cough) Qty: 20 0RF
cefdinir 300 mg capsule
300 mg PO BID Qty: 6 0RF
prednisone 10 mg tablet
10 mg PO DAILY Qty: 12 0RF
Rx Instructions:
30 mg daily for 2 days then 20 mg daily for 2 days then 10 mg daily for 2 days
hydrocodone-acetaminophen 5-300 mg tablet
1 tab PO BID PRN (Reason: severe rib pain) Qty: 10 0RF
Continued
albuterol sulfate 1 PUFF HFA aerosol inhaler
1 puff inhalation R Q6HPRN PRN (Reason: sob)
buspirone [BuSpar] 5 mg Tablet
2.5 mg PO BID
omeprazole 40 mg Capsule,Delayed Release(Dr/Ec)
40 mg PO DAILY
gabapentin 800 mg Tablet
800 mg PO BID
ibuprofen [Advil] 200 mg Tablet
400 mg PO Q6HPRN PRN (Reason: mild pain)
hydroxyzine HCl 25 mg Tablet
25 mg PO BIDPRN PRN (Reason: anxiety)
Trelegy Ellipta 100-62.5-25 mcg Blister With Device
1 inh INHALATION R DAILY
Discontinued
prednisone 20 mg Tablet
40 mg PO DAILY
Patient Comments:
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
tramadol 50 mg Tablet
50 mg PO BIDPRN PRN (Reason: MODERATE PAINS)
amoxicillin-pot clavulanate [Augmentin] 875-125 mg Tablet
1 tab PO BID
Discharge Orders:
Discharge Patient (As Directed); Ordered 10/18/23
Ordered By: Hamida Whitlock
Discharge Date and Time
Print Language: BARBADIAN
--- NOTE | 2023-10-18 13:05 | CM ---
Chart reviewed and plan is to home no needs.
Plan; Home no needs.
[2023-10-18 14:15] VITALS: BP 157/92
--- NOTE | 2023-10-18 14:15 | PTCARENOTE ---
Went over discharge instructions with patient. Removed IV.
Obtained vital signs before discharge. Patient ambulated out of hospital with .
== END 2023-10-18 14:17 | disposition home or self-care (01) | DRG 202 ==
LOC: 4 WEST ACU 13:39
PROVIDERS: Clinical Nurse Specialist Family Health; ADMITTING PHYSICIAN Internal Medicine; CONSULT PHYSICIAN Internal Medicine; EMERGENCY PHYSICIAN Emergency Medicine; FAMILY PHYSICIAN Family Medicine
DX: J45.41 Moderate persistent asthma with (acute) exacerbation (principal); J18.9 Pneumonia, unspecified organism; F31.30 Bipolar disorder, current episode depressed, mild or moderate severity, unspecified; K76.0 Fatty (change of) liver, not elsewhere classified; R16.1 Splenomegaly, not elsewhere classified; E66.9 Obesity, unspecified; F41.9 Anxiety disorder, unspecified; G47.33 Obstructive sleep apnea (adult) (pediatric); I10 Essential (primary) hypertension; R74.01 Elevation of levels of liver transaminase levels; Z68.37 Body mass index [BMI] 37.0-37.9, adult
CPT/HCPCS: 71046; 71275; 80048; 80053; 84484; 84703; 85025; 85610; 87040; 87205; 87502; 87811; 93005; 94640; 96374; 99291; Q9967

== ENCOUNTER → 2023-11-19 14:17 | Outpatient (REF) | payer OTHER, SELFPAY | LOC: RAD 14:17 | PROVIDERS: ATTENDING PHYSICIAN Physician Assistant; REFERRING PHYSICIAN Anesthesiology | DX: M25.551 Pain in right hip (principal) | CPT/HCPCS: 73502 ==

== ENCOUNTER → 2023-11-25 07:34 | Outpatient (REF) | payer OTHER, SELFPAY | LOC: EMG 07:34 | PROVIDERS: ATTENDING PHYSICIAN Physician Assistant; OTHER PHYSICIAN Anesthesiology | DX: R20.0 Anesthesia of skin (principal) | CPT/HCPCS: 95886; 95910 ==

== ENCOUNTER → 2024-05-25 12:56 | Outpatient (REF) | payer OTHER, SELFPAY | LOC: RCS 12:56 | PROVIDERS: FAMILY PHYSICIAN Family Medicine | DX: Z01.818 Encounter for other preprocedural examination (principal) | CPT/HCPCS: 93005 ==